=== PATIENT | female | born 1985 | race Two or more races ===

== ENCOUNTER 2024-09-23 08:58 | Emergency (ER) | payer MEDICAID, OTHER ==
[~2024-09-23] VITALS: Ht 157.5 cm; Wt 61.4 kg
[2024-09-23] MEDS: SODIUM CHLORIDE 0.9% 1,000 ML IV ONE ×3 (09:15→09:30)
--- NOTE | 2024-09-23 09:20 | ED.PDOC ---
History of Present Illness HPI Comments 39 y/o F, BIB, with PMHx of thyroid disease and neuropathy presents to the ED for CC of generalized weakness. EMS reports, patient is coming from work where she c/o generalized weakness with associated dizziness onset, x2days ago. Upon arrival to scene patient was found lethargic, lying supine, alert & oriented x4, with GCS of 15. 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 Patient denies nausea, vomiting, photophobia, or headache. No other symptoms or modifying factors are present at this time. Chief Complaint: General Weakness Time Seen by MD: 09:10 Reviewed Notes: Nurses Notes, Preventive Maintenance Coordinator Notes, Medications, Allergies Allergies: Coded Allergies: Baclofen (Verified Allergy, Unknown, 09/23/24) Information Source: Patient, Emergency Med Personnel Mode of Arrival: EMS Severity: Moderate Timing: Days Duration: Since onset Prehospital treatment: None Medication Refill: Ran out of Medication Past Medical History PAST MEDICAL HISTORY: Thyroid Past Medical History (Other): NEUROPATHY Surgical History: Denies all surgeries [employer] History: Denies all [employer] Hx Family History Family History: Unknown Social History Smoker: Non-Smoker Alcohol: Denies ETOH Use Drugs: Denies Drug Use Lives In: Home Constitutional: reports: weakness; denies: chills, diaphoresis, fatigue, fever, malaise, sweats, others EENTM: denies: blurred vision, double vision, ear bleeding, ear discharge, ear drainage, ear pain, ear ringing, eye pain, eye redness, hearing loss, mouth pain, mouth swelling, nasal discharge, nose bleeding, nose congestion, nose pain, photophobia, tearing, throat pain, throat swelling, voice changes, others Respiratory: denies: cough, hemoptysis, orthopnea, SOB at rest, shortness of breath, SOB with excertion, stridor, wheezing, others Cardiovascular: denies: chest pain, dizzy spells, diaphoresis, Dyspnea on exertion, edema, irregular heart beat, left arm pain, lightheadedness, palpitations, PND, syncope, others Gastrointestinal: denies: abdomen distended, abdominal pain, blood streaked bowels, constipated, diarrhea, dysphagia, difficulty swallowing, hematemesis, melena, nausea, poor appetite, poor fluid intake, rectal bleeding, rectal pain, vomiting, others Genitourinary: denies: abnormal vagina bleeding, burning, dyspareunia, dysuria, flank pain, frequency, hematuria, incontinence, pain, , vagina discharge, urgency, others Neurological: reports: dizziness; denies: fainting, headache, left sided numbness, left sided weakness, numbness, paresthesia, pre-existing deficit, right sided numbness, right sided weakness, seizure, speech problems, tingling, tremors, weakness, others Musculoskeletal: denies: back pain, gout, joint pain, joint swelling, muscle pain, muscle stiffness, neck pain, others Integumetry: denies: bruises, change in color, change in hair/nails, dryness, laceration, lesions, lumps, rash, wounds, others Allergic/Immunocompromised: denies: Difficulty Healing, Frequent Infections, Hives, Itching, others Hematologic/Lymphatic: denies: anemia, blood clots, easy bleeding, easy bruising, swollen glands, others Endocrine: denies: excessive hunger, excessive sweating, excessive thirst, excessive urination, flushing, intolerance to cold, intolerance to heat, unexplained weight gain, unexplained weight loss, others Psychiatric: denies: anxiety, bipolar disorder, depression, hopeless, panic disorder, schizophrenia, sleepless, suicidal, others All Other Systems: Reviewed and Negative Physical Exam General Appearance: Moderate Distress HEENT: Normal ENT Inspection, Pharynx Normal, TMs Normal Neck: Full Range of Motion, Non-Tender, Normal, Normal Inspection Respiratory: Chest Non-Tender, Lungs Clear, No Accessory Muscle Use, No Respiratory Distress, Normal Breath Sounds Cardiovascular: Regular Rate/Rhythm Breast Exam: Deferred Gastrointestinal: No Organomegaly, Non Tender, No Pulsatile Mass, Normal Bowel Sounds, Soft Genitalia: Deferred Pelvic: Deferred Rectal: Deferred Extremities: No calf tenderness, Normal capillary refill, Normal inspection, Normal range of motion, Non-tender, No pedal edema Musculoskeletal : Apperance: Normal Neurologic: Alert, account services representative II-XII nml as Tested, No Motor Deficits, Normal Affect, Normal Mood, No Sensory Deficits Cerebellar Function: NOT DONE Reflexes: NOT DONE Skin: Dry, Normal Color, Warm Peripheral Pulses: 3+ Radial (R), 3+ Radial (L) Lymphatic: No Adenopathy Was a procedure done? Was a procedure done?: No EKG EKG : Pulse Rate (adult): 90 [place]: Normal Cardiac Rhythm: NSR Block: None Hypertrophy: None ST: Normal Differential Dx Considerations may include: THYROID DISEASE, INFLUENZA, COVID X-Ray, Labs, Meds, VS Vital Signs Date Time Temp Pulse Resp B/P (MAP) Pulse Ox O2 Delivery O2 Flow Rate FiO2 09/23/24 12:00 97 24 125/71 (89) 97 09/23/24 09:42 21 99 Room Air* 0 21 09/23/24 09:42 97.0 108 21 127/52 (77) 99 97.0 09/23/24 09:21 90 09/23/24 09:03 90 09/23/24 09:00 97.7 91 20 131/92 98 97.7 Lab Test 09/23/24 09:34 Range/Units White Blood Count 6.6 4.4-10.8 10^3/uL Red Blood Count 4.17 4.0-5.20 10^6/uL Hemoglobin 13.3 12.2-16.2 g/dL Hematocrit 37.7 36.0-46.0 % Mean Corpuscular Volume 90.5 80.0-100.0 fL Mean Corpuscular Hemoglobin 32.0 28.0-32.0 pg Mean Corpuscular Hemoglobin Concent 35.3 32.0-36.0 g/dL Red Cell Distribution Width 12.3 11.8-14.3 % Platelet Count 213 140-450 10^3/uL Mean Platelet Volume 8.7 6.9-10.8 fL Neutrophils (%) (Auto) 69.8 37.0-80.0 % Lymphocytes (%) (Auto) 19.3 10.0-50.0 % Monocytes (%) (Auto) 7.9 0.0-12.0 % Eosinophils (%) (Auto) 2.4 0.0-7.0 % Basophils (%) (Auto) 0.6 0.0-2.0 % Neutrophils # (Auto) 4.6 1.6-8.6 10 ^3/uL Lymphocytes # (Auto) 1.3 0.4-5.4 10 ^3/uL Monocytes # (Auto) 0.5 0-1.3 10 ^3/uL Eosinophils # (Auto) 0.2 0-0.8 10 ^3/uL Basophils # (Auto) 0 0-0.2 10 ^3/uL Nucleated Red Blood Cells 0.0 % Sodium Level 139 136-145 mmol/L Potassium Level 3.1 L 3.5-5.1 mmol/L Chloride Level 102 98-107 mmol/L Carbon Dioxide Level 21 20-31 mmol/L Anion Gap 16 H 5-15 Blood Urea Nitrogen 19 9-23 mg/dL Creatinine 0.81 0.550-1.02 mg/dL Glomerular Filtration Rate Calc 95 >90 mL/min BUN/Creatinine Ratio 23.5 H 10.0-20.0 Serum Glucose 73 L 74-106 mg/dL Calcium Level 9.7 8.7-10.4 mg/dL Thyroid Stimulating Hormone (TSH) 1.91 0.55-4.78 uIU/mL Current Medications Medications (Trade) Dose Ordered Sig/Macrina Route Start Time Stop Time Status Last Admin Sodium Chloride 1,000 ml @ 1,000 mls/hr Q1H ONCE IV 09/23/24 09:15 09/23/24 10:14 DC 09/23/24 09:15 Sodium Chloride 1,000 ml @ 1,000 mls/hr Q1H ONCE IV 09/23/24 09:30 09/23/24 10:29 DC 09/23/24 09:30 Potassium Bicarbonate (Klor-Con/Ef) 50 meq ONCE ONCE PO 09/23/24 11:00 09/23/24 11:01 DC 09/23/24 11:33 Patient alert. Complaining of generalized weakness. Vitals stable. Answering questions. Establish intravenous access. Was given fluids. She has not been taking her thyroid medications. Explained to the patient. Continue monitoring. Potassium is low. Was given potassium. She is doing much better. Satisfied with the treatment plan. Physical examination pristine. Was told to follow up with her primary care physician. Was told to come back if there is any problem. Time of 1ST Reevaluation: 09:40 Reevaluation 1ST: Unchanged Patient Education/Counseling: Diagnosis, Treatment Family Education/Counseling: No Family Present SEPSIS Sepsis Screen Physician Orders Electrocardigram (09/23/24 09:06) Rapid Influenza A&B (09/23/24 09:11) Covid19 Antigen Margaret (09/23/24 ) Chest Portable (09/23/24 09:30) Urinalysis (09/23/24 09:30) Sodium Chloride 0.9% (09/23/24 09:30) Vital Signs Date Time Temp Pulse Resp B/P (MAP) Pulse Ox O2 Delivery O2 Flow Rate FiO2 09/23/24 12:00 97 24 125/71 (89) 97 09/23/24 09:42 21 99 Room Air* 0 21 09/23/24 09:42 97.0 108 21 127/52 (77) 99 97.0 09/23/24 09:21 90 09/23/24 09:03 90 09/23/24 09:00 97.7 91 20 131/92 98 97.7 Laboratory Tests Test 09/23/24 09:34 White Blood Count 6.6 10^3/uL (4.4-10.8) Medications Medications Dose Ordered Sig/Macrina Route Start Time Stop Time Status Last Admin Dose Admin Potassium Bicarbonate 50 meq ONCE ONCE PO 09/23/24 11:00 09/23/24 11:01 DC 09/23/24 11:33 Sodium Chloride 1,000 ml @ 1,000 mls/hr Q1H ONCE IV 09/23/24 09:15 09/23/24 10:14 DC 09/23/24 09:15 Sodium Chloride 1,000 ml @ 1,000 mls/hr Q1H ONCE IV 09/23/24 09:30 09/23/24 10:29 DC 09/23/24 09:30 Departure 1 Departure Time of Disposition: 09:39 Impression: Primary Impression: Hypokalemia Additional Impression: Alex thyroiditis Disposition: ADMITTED INPATIENT Admit to: Med Surg Condition: Guarded Critical Care Note Critical Care Time?: No Stability Stability form required: No Heart Score Heart Score: Heart Score Response (Comments) Value History N/A 0 EKG N/A 0 Age N/A 0 Risk Factors N/A 0 Troponin N/A 0 Total 0 I personally scribed for SARAH SCOTT MD ([email or web address]) on 09/23/24 at 09:20. Electronically submitted by Miri Marks ([email or web address]). I personally scribed for SARAH SCOTT MD ([email or web address]) on 09/23/24 at 09:21. Electronically submitted by Miri Marks ([email or web address]). SARAH SCOTT MD Sep 23, 2024 09:20
[2024-09-23 09:42] VITALS: RESP 21; TEMP 97; O2SAT 99
--- NOTE | 2024-09-23 09:55 | DVH ---
CHEST RADIOGRAPH Indication: sob Technique: Single frontal view of the chest was obtained COMPARISON: None FINDINGS: Lines and Tubes: None Lungs: Clear Pleura: No effusion. No pneumothorax. Cardiomediastinal contours: Unremarkable Bones: Unremarkable IMPRESSION: No acute disease.
[2024-09-23 10:08] LABS: Hematocrit 37.7 % (36.0-46.0); Hemoglobin 13.3 g/dL (12.2-16.2); Mean Corpuscular Hemoglobin 32.0 pg (28.0-32.0); Mean Corpuscular Volume 90.5 fL (80.0-100.0); Nucleated Red Blood Cells % 0.0 %
[2024-09-23 10:38] LABS: Chloride 102 mmol/L (98-107); Sodium 139 mmol/L (136-145)
[2024-09-23 10:39] LABS: Anion Gap 16 (5-15); Calcium 9.7 mg/dL (8.7-10.4); Carbon Dioxide 21 mmol/L (20-31); Potassium 3.1 mmol/L (3.5-5.1)
[2024-09-23 10:44] LABS: BUN/Creatinine Ratio 23.5 (10.0-20.0); Blood Urea Nitrogen 19 mg/dL (9-23)
[2024-09-23 10:46] LABS: Glucose 73 mg/dL (74-106)
[2024-09-23] MEDS: POTASSIUM EFFERVESENT TAB 25 MEQ PO ONE (11:33)
[2024-09-23 12:00] VITALS: BP 125/71; PULSE 97; RESP 24; O2SAT 97
--- NOTE | 2024-09-23 18:59 | ECG ---
[facility] Test Date: 2024-09-23 Test Time: 09:03:22 Pat Name: ROSEMARIE MARQUEZ Department: [facility] ED Patient ID: [facility]-[id number] Room: Gender: F Patient Intake Coordinator: олег : 1985 Requested By: SARAH SCOTT Order Number: [id number] Reading MD: Matty Felder Measurements Intervals [place] Rate: 90 P: 61 WV: 125 QRS: 52 QRSD: 99 T: 20 QT: 380 QTc: 465 Interpretive Statements Sinus rhythm Borderline T abnormalities, anterior leads Baseline wander in lead(s) V1 Electronically Signed On 09-23-2024 23:00:23 PDT by Matty Felder Please click the below link to view image of tracing.
== END 2024-09-23 15:18 | disposition home or self-care (01) ==
LOC: EDBD 08:58 → ER 08:58
DX: E87.6 Hypokalemia (principal); E06.3 Autoimmune thyroiditis; Z91.09 Other allergy status, other than to drugs and biological substances
CPT/HCPCS: 36415; 71045; 80048; 82947; 84443; 85025; 93005; 96360; 99285; J7030